=== PATIENT | female | born 1980 | race Caucasian/White ===

== ENCOUNTER → 2018-03-19 14:07 | Outpatient (CLI) | payer BC, SELFPAY ==
[2018-03-19 16:26] LABS: Thyroid Stimulating Hormone 0.77 uIU/ml (0.358-3.740)
== END ==
PROVIDERS: Family Provider Family Medicine; PCP Obstetrics & Gynecology; Visit Provider Obstetrics & Gynecology
DX: N93.8 Other specified abnormal uterine and vaginal bleeding (principal)
CPT/HCPCS: 36415; 84443

== ENCOUNTER → 2018-03-26 08:13 | Outpatient (CLI) | payer BC, SELFPAY ==
--- NOTE | 2018-03-26 08:15 | MM_ITS ---
MM Dig screening mamm BI w/CAD ORDERING PHYSICIAN : Seun Rushing MD PATIENT AGE: 37 years GENDER: Female COMPARISON: December 2014 screening baseline mammogram, with. subsequent January 2015 diagnostic bilateral mammogram images ... Also ultrasound right breast January 2015 INDICATION: ITS.REASON: screening No new complaints nor clinical findings HISTORY:. Norplant. Noncontributory family history TECHNIQUE: Standard CC and MLO images were obtained. R2 CAD reviewed. FINDINGS: Heterogeneous Moderate breast density was probably an elements central breast extending to the superior breast and upper outer quadrant bilaterally. Similar overall pattern and architecture to previous studies with no definitive suspicious new findings. No dominant mass nor suspicious calcifications. Areas of mild asymmetry seen today were seen previously RIGHT BREAST:Overall similar to previous 2015 exams. No significant new finding LEFT BREAST:No new areas of significant concern. Areas of minimal focal density seen today were evident previously, and can be followed in one year . If any palpable areas should arise interval follow-up imaging with ultrasound possibly spot views may be warranted ultrasound IMPRESSION: ......... No new areas of significant concern.. Moderately dense heterogeneous breast pattern. Slightly decreased sensitivity mammography Bilateral follow-up in one year recommended and should be encouraged/emphasized. BI-RADS Category: 2 Benign Finding(s) RECOMMENDED FOLLOW-UP: 1YR 1 YEAR FOLLOW-UP (A letter has been sent to the patient regarding results of the study.)
== END ==
PROVIDERS: Family Provider Family Medicine; PCP Obstetrics & Gynecology; Visit Provider Obstetrics & Gynecology
DX: Z12.31 Encounter for screening mammogram for malignant neoplasm of breast (principal)
CPT/HCPCS: 77067

== ENCOUNTER → 2020-03-24 15:29 | Outpatient (CLI) | payer OTHER, SELFPAY ==
[2020-03-24 15:44] LABS: Basophils % 0.3 % (0.1-2.0); Eosinophils # 0.2 K/mm3 (0.0-0.4); Eosinophils % 1.7 % (0.1-12.0); Hematocrit 41.8 % (37.0-47.0); Lymphocytes # 3.3 K/mm3 (0.7-4.5); Lymphocytes % 33.7 % (10-50); Mean Corpuscular HGB Conc 33.4 g/dL (31.8-35.4); Mean Corpuscular Hemoglobin 30.7 pg (27.0-31.2); Mean Platelet Volume 8.2 fl (7.4-10.4); Monocytes # 0.3 K/mm3 (0.1-1.0); Monocytes % 2.9 % (1.7-9.3); Neutrophils % 61.5 % (37.0-80.0); Platelet Count 269 K/mm3 (142-424); Red Blood Count 4.55 M/mm3 (4.20-5.40); Red Cell Distribution Width 13.1 % (11.5-17.5); White Blood Count 9.7 K/mm3 (4.8-10.8)
[2020-03-24 15:53] LABS: Urine Pregnancy, HCG Qual. Negative (Negative)
[2020-03-24 16:07] LABS: Chloride 103 mmol/L (98-107)
[2020-03-24 16:08] LABS: Potassium 3.8 mmoL/L (3.5-5.1); Sodium 138 mmol/L (136-145)
[2020-03-24 16:10] LABS: Alanine Aminotransferase 16 U/L (12-78); Albumin Level 4.3 g/dl (3.5-5.0); Albumin/Globulin Ratio 1.6 (1.1-1.8); Alkaline Phosphatase 65 U/L (38-126); Aspartate Amino Transferase 22 U/L (14-36); Bilirubin,Total 0.8 mg/dl (0.2-1.3); Blood Urea Nitrogen 9 mg/dl (7-17); Estimated Glomerular Filt Rate 111 ml/min (>60); GFR (African American) 134 ML/MIN (>60); Globulin 2.7 g/dL (1.3-3.2)
[2020-03-24 16:11] LABS: Anion Gap 13.8 mEq/L (5-15); Calcium 9.3 mg/dl (8.4-10.2); Carbon Dioxide 25 mmol/L (22.0-30.0); Glucose 92 mg/dl (74-100)
[2020-03-24 17:19] LABS: Coronavirus 19 IgG Antibody Negative (Negative); Coronavirus 19 IgM Antibody Negative (Negative)
[2020-03-26 05:58] LABS: Testosterone,Total 11 ng/dL (8-48)
[2020-03-26 10:26] LABS: Estradiol 23.5 pg/mL (.); FSH 1.3 mIU/mL (.); LH 0.7 mIU/mL (.)
== END ==
PROVIDERS: Visit Provider Obstetrics & Gynecology
DX: Z01.818 Encounter for other preprocedural examination (principal); N93.8 Other specified abnormal uterine and vaginal bleeding
CPT/HCPCS: 36415; 80053; 81025; 82670; 83001; 83002; 84403; 85025; 86328

== ENCOUNTER 2020-03-26 07:31 | Day surgery (SDC) | payer OTHER, SELFPAY ==
[2020-03-24 10:46] VITALS: BMI 28.8
[2020-03-26] VITALS (11 sets, daily range): BP systolic 122–143; BP diastolic 73–92; PULSE 65–75; RESP 12–18; TEMP 36.4–43; O2SAT 96–100
--- NOTE | 2020-03-26 10:17 | P.PN_ITS ---
[facility] Anesthesia Checklist - Structural Data Admitted From: Home Planned Operative Procedure/s: dx lap btl Consent for Planned Operative Procedure(s) Verified: Yes - Additional verifications Anesthesia Reactions: No Hx Blood Transfusions: No - Airway Assessment C-Spine Mobility Assessed: Yes TMJ Mobility Assessed: Yes Dentition: Good Dentition - Neurological Assessment Level of Consciousness: Awake, Alert, Appropriate - Anesthesia Plan Anesthesia Risk discussed: Yes Anesthesia Plan: Verified ASA Class: II Anesthesia Type: General [facility] History I have reviewed the patient's past medical history: Yes Medical History: Denies:: Cancer, Diabetes Mellitus Type 1, Diabetes Mellitus Type 2, Internal Pacemaker, MRSA, Seizures *Have you ever received a pneumonia vaccine?: No *Have you received a flu vaccine this season?: No Other Medical History: Reports: Other Anesthesia experience/problems:: none Laterality Cases: Right: Total Knee Replacement Other Surgeries: Yes: Other. No: Pacemaker Amputation: No Fractures: No - *Social History Last grade of school completed: Advanced degree Smoking Status: Current every day smoker Tobacco Type: cigarettes # Packs/Day (cigarettes): 1 Alcohol Intake: current Alcohol Intake Frequency:: holidays/special occasions only Substance Use Type: denies use *Occupational Status:: employed Housing: house Household Members: significant other, children *Travel in the last 8 weeks: None Family Hx:: No significant family history
--- NOTE | 2020-03-26 11:14 | HMH.ANESI ---
[facility] Anesthesia Record Part I Intake, IV Amount: 1,500 Estimated blood loss (mL): 20 Urine output (mL): 0 Blood Pressure: 122/86 SaO2: 97 Pulse Rate: 68 Respiratory Rate: 12 Temperature: 99 F Patient is:: Awake, Stable Stable to PACU at:: 11:10
--- NOTE | 2020-03-26 14:09 | HMH.OPNOTE ---
Date of procedure: 03/26/20 Pre-op Diagnosis:: 1. Heavy menstrual bleeding 2. Dysfunctional uterine bleeding 3. Undesired fertility Post-op Diagnosis:: same Procedure performed:: 1. Laparoscopic tubal ligation 2. D&C Hysteroscopy with Myosure 3. Novasure endometrial ablation Surgeon:: Carmen Orozco MD HOSPITAL INSURANCE CLERK:: Salazar Nelson Anesthesia: GETA Estimated blood loss (mL): 20 Operative findings:: grossly normal ovaries and fallopian tubes endometrial polyp Operative note:: LAPAROSCOPY: The patient was taken to the operating room and general anesthesia was administered. She was prepped/draped in lithotomy position. A uterine manipulator was placed without difficulty. Gloves were changed and attention was turned to the abdomen. A 5mm skin incision was made in the umbilical fold and the verees needle was inserted through the peritoneum and into the abdominal cavity in standard fashion. The abdomen was insufflated with CO2 gas. A 5mm non-bladed trocar was inserted directly into the abdominal cavity and appropriate placement was confirmed with the laparoscope. No intra-abdominal injuries occurred during entry into the abdominal cavity, as confirmed visually with the laparoscope. The patient was placed in trendelenburg and a 8mm skin incision was made 2cm above the pubic symphysis. A 8mm non-bladed trocar was inserted under direct visualization, without complication. The uterus was elevated out of the pelvis in order to better visualize the anatomy. A survey of the pelvis and abdomen revealed no anatomic abnormalities. The fallopian tubes were double clamped with Filshie clips without complication. The abdomen was then evacuated of gas and all trocars removed. The skin incisions were closed with 4-0 monocryl. HYSTEROSCOPY: Attention was then turned to the vagina, and the uterine manipulator was removed. The anterior lip of the cervix was grasped with a single tooth tenaculum and the cervix was dilated with Hernandez dilators of serially increasing size until the external os was able to accomodate the Myosure hysteroscope. The hysteroscope was advanced through the cervix and into the uterine cavity, which was distended with LR. Once the uterus was sufficiently distended, the cavity was evaluated and revealed and endometrial polyp on the anterior uterine wall. The Myosure was inserted into the hysteroscope and the polyp was excised successfully and without complication or significant fluid deficit. After the conclusion of this procedure, the Myosure and hysteroscope were removed from the uterus. The uterine cavity sounded to a length of 6cm. The Novasure was inserted through the cervix and expanded to fit the width of the uterus, with a width of 4.2cm. After a successful cavity assessment, the device was deployed and the endometrial ablation was completed in 86 seconds. Once the device had turned off, the Novasure was removed from the uterus and the hysteroscope was reinserted into the uterine cavity. The cavity appeared diffusely cauterized. The hysteroscope was removed from the uterus and all instruments removed from the vagina. The tenaculum site was hemostatic. All sponge/lap/needle/instrument counts correct for both abdominal and vaginal procedures. Total EBL: 20 cc. The patient was taken out of lithotomy position, extubated and taken to the PACU in stable condition. Condition: stable Disposition: PACU Complications:: none
--- NOTE | 2020-03-26 14:14 | PC.NURSE ---
1140-detailed bedside report given to Cleve,RN, pt stable upon discharge, vss
--- NOTE | 2020-03-26 19:43 | HMH.ANESII ---
[facility] Anesthesia Record Part II Discharge Time: 11:40 Destination: Surgical Day Care (OP Surgery) PACU nurse assessment reviewed?: Yes Patient Condition:: Good Anesthesia Complications:: None Swallowing reflex intact?: Yes Cyanosis?: No Blood Pressure: 135/78 Pulse Rate: 65 Temperature: 98.2 F Mental Status: Alert & Oriented Pain level:: 2 Nausea and/or vomitting:: None Intake, IV Amount: 0
== END 2020-03-26 12:10 | disposition home or self-care (01) ==
PROVIDERS: PCP Family Medicine; Visit Provider Obstetrics & Gynecology
PROC: 0U5B8ZZ Destruction of Endometrium, Via Natural or Artificial Opening Endoscopic (ICD-10-PCS; CPT 58563; principal; 2020-03-26 09:30)
DX: Z30.2 Encounter for sterilization (principal); N92.0 Excessive and frequent menstruation with regular cycle; N95.1 Menopausal and female climacteric states; Z96.641 Presence of right artificial hip joint; Z87.42 Personal history of other diseases of the female genital tract; Z72.0 Tobacco use; Z79.890 Hormone replacement therapy
CPT/HCPCS: 58563; 58671; 96374; J2405

== ENCOUNTER 2020-04-26 12:06 | Emergency (ER) | payer OTHER, SELFPAY ==
[2020-04-26 12:12] VITALS: BP 129/76; PULSE 77; RESP 17; TEMP 36.7; O2SAT 100; BMI 29.5
--- NOTE | 2020-04-26 12:29 | XR_ITS ---
PROCEDURE: XR ANKLE LT MIN 3V CLINICAL INDICATION: TWISTED ANKLE Pain COMPARISON: No exams were available for comparison FINDINGS: Soft tissue swelling laterally. No acute fracture IMPRESSION: Soft tissue swelling otherwise negative Dictated by: Daniel Falcon MD 04/26/2020 14:13 Daniel Falcon MD in OV 04/26/2020 14:13
[2020-04-26 12:58] VITALS: BP 121/82; PULSE 71; RESP 20; TEMP 36.6; O2SAT 99; BMI 29.5
--- NOTE | 2020-04-26 13:14 | HMH.EDUTC ---
[facility] [place] Disposition Clinical Impression: Ankle sprain Qualifiers: Encounter type: initial encounter Involved ligament of ankle: other ligament Laterality: left Qualified Code(s): S93.492A - Sprain of other ligament of left ankle, initial encounter Disposition: Home, Self-Care Condition on Discharge: Good Instructions: How to Use Crutches, Ankle Sprain, DI for Ankle Sprain, How To Perform RICE (Rest, Ice, Compress, Elevate) Additional Instructions: *RICE, Rest the extremity, Ice 15-20 minutes 3-4 times daily, Compress- wear the cayetano wrap as discussed as much as possible to help reduce swelling and pain, Elevate the extremity when at rest *Cayetano wrap/Walking boot is for support and help control swelling, use it except in the shower. Be sure that is not to tight but not to loose either *Elevate when resting *Ibuprofen every 6-8 hours as needed for pain an inflammation. If need something more can take Tylenol in between doses of Ibuprofen to help Immediately follow up with your family doctor for new or worsening of symptoms, or no noticeable improvement over the next 3-5 days GO straight to Dr Brown office for further treatment and evaluation Return if needed Straight to ER if any life threatening symptoms Further instructions per Dr Frazier Referrals: Rubén Ramirez MD [Primary Care Provider] - As needed Alana Frazier DPM [Staff Physician] - (Go straight for [facility] to Dr Frazier office) Time of Disposition: 13:28 Medical Decision Making - Martin Inquiry Pt receiving controlled substance: No Martin was queried for this patient: No Vital Signs: 04/26/20 12:12 04/26/20 12:58 Temperature 98.1 F 97.9 F Temperature Source Oral Oral Pulse Rate [Radial] 77 71 Respiratory Rate 17 20 Blood Pressure [Right Arm] 129/76 121/82 Blood Pressure Mean [Right Arm] 93 95 Blood Pressure Source [Right Arm] Automatic Cuff Automatic Cuff Blood Pressure Position [Right Arm] Sitting Sitting 02 Sat by Pulse Oximetry 100 99 Oxygen Delivery Method Room Air Room Air Orders (Tests/Meds): ORDERS Category Date Time Status XR ankle LT min 3V Stat Exams 04/26/20 12:29 Taken - Radiology Data #1 Image(s): Ankle Image Reviewed: Yes I reviewed the patient's radiology image w/the ED provider Preliminary Findings: No Fracture Seen [facility] [place] HPI - General Stated complaint: AO [id number] left ankle injury,home Time Seen by Provider: 04/26/20 13:14 Mode of Arrival: Ambulatory Source of Information: Patient Limitations: No Limitations Description of Symptoms (Recalled from Triage Doc. by RN): PATIENT C/O PAIN AND SWELLING TO LEFT ANKLE; STATES SHE TWISTED WHEN SHE FELL COMING OUT OF A DOOR ON SUNDAY HEENT Symptoms (Recalled from RN notes): No Resp Symptoms (Recalled from RN notes): No Skin Symptoms (Recalled from RN notes): No MS Symptoms (Recalled from RN notes): No Functional Status (Recalled from RN notes): WNL - History of Present Illness Provider Complaint: Patient states that she was coming out of her door on Sunday when she stepped out and twisted her left ankle States that ever since she have pain and swelling ever since and unable to bear weight on it due to the pain and swelling and bruising has continued to worsen - Related Data Home Medications Medication Instructions Recorded Confirmed phentermine 37.5 mg capsule 37.5 mg PO ONCE 01/28/18 04/26/20 Allergies Allergy/AdvReac Type Severity Reaction Status Date / Time No Known Allergies Allergy Verified 03/24/20 10:53 - Worker's Comp Is this a Worker's Comp case?: No [facility] History - Hepatitis A Screen Drug use history?: No High risk sexual behaviors?: No History of sexually transmitted infection?: No Currently employed?: No Childcare worker?: No Do you have indoor plumbing?: Yes Do you have electricity?: Yes Attestation statement:: This patient has been screened for Hepatitis A risk factors. I have reviewed the patient's past medical history: Yes
[2020-04-26 13:32] VITALS: BP 121/82; PULSE 71; RESP 20; TEMP 36.6; O2SAT 99
== END 2020-04-26 13:35 | disposition home or self-care (01) ==
PROVIDERS: Emergency Provider Nurse Practitioner; PCP Family Medicine
DX: S93.492A Sprain of other ligament of left ankle, initial encounter (principal); X50.1XXA Overexertion from prolonged static or awkward postures, initial encounter; Y92.018 Other place in single-family (private) house as the place of occurrence of the external cause; F17.210 Nicotine dependence, cigarettes, uncomplicated
CPT/HCPCS: 29515; 73610; 99202

== ENCOUNTER → 2021-09-06 15:09 | Outpatient (POV) | payer OTHER, SELFPAY | PROVIDERS: Visit Provider Dermatology | DX: Z00.00 Encounter for general adult medical examination without abnormal findings (principal) ==

== ENCOUNTER → 2022-07-17 15:55 | Outpatient (CLI) | payer OTHER, SELFPAY ==
[2022-07-17 19:27] LABS: Adenovirus,PCR Not Detected (NotDetected); Bordetella Pertussis Not Detected (NotDetected); Chlamydophila Pneumoniae, PCR Not Detected (NotDetected); Coronavirus 19, PCR Not Detected (NotDetected); Coronavirus 229E Not Detected (NotDetected); Coronavirus NL63 Not Detected (NotDetected); Coronavirus OC43 Not Detected (NotDetected); Coronovirus HKU1,PCR Not Detected (NotDetected); Human Metapneumovirus Not Detected (NotDetected); Influenza A, PCR Not Detected (NotDetected); Influenza AH1, 2009 Not Detected (NotDetected); Influenza AH1, PCR Not Detected (NotDetected); Influenza AH3,PCR Not Detected (NotDetected); Influenza B, PCR Not Detected (NotDetected); Mycoplasma Pneumoniae, PCR Not Detected (NotDetected); Parainfluenza 1, PCR Not Detected (NotDetected); Parainfluenza 2, PCR Not Detected (NotDetected); Parainfluenza 3, PCR Not Detected (NotDetected); Parainfluenza 4, PCR Not Detected (NotDetected); Respiratory Syncytial Virus Not Detected (NotDetected); Rhinovirus/Enterovirus Not Detected (NotDetected)
[2022-07-17 20:05] LABS: Basophils # 0.1 K/mm3 (0-0.2); Basophils % 0.9 % (0.1-2.0); Eosinophils # 0.1 K/mm3 (0.0-0.4); Eosinophils % 1.1 % (0.1-12.0); Hematocrit 43.1 % (37.0-47.0); Hemoglobin 14.3 g/dL (12.2-16.2); Lymphocytes # 2.2 K/mm3 (0.7-4.5); Mean Corpuscular HGB Conc 33.3 g/dL (31.8-35.4); Mean Corpuscular Hemoglobin 29.2 pg (27.0-31.2); Mean Corpuscular Volume 87.8 fl (81-99); Mean Platelet Volume 9.6 fl (7.4-10.4); Monocytes # 0.3 K/mm3 (0.1-1.0); Monocytes % 4.9 % (1.7-9.3); Neutrophils # 3.9 K/mm3 (1.8-7.8); Neutrophils % 59.2 % (37.0-80.0); Platelet Count 342 K/mm3 (142-424); Red Blood Count 4.91 M/mm3 (4.20-5.40); Red Cell Distribution Width 12.5 % (11.5-17.5); White Blood Count 6.6 K/mm3 (4.8-10.8)
== END ==
PROVIDERS: PCP Nurse Practitioner; Visit Provider Nurse Practitioner
DX: J18.9 Pneumonia, unspecified organism (principal)
CPT/HCPCS: 85025; 87581; 87632; 87798; C9803; U0003; U0005

== ENCOUNTER → 2022-07-19 19:53 | Outpatient (CLI) | payer OTHER, SELFPAY ==
--- NOTE | 2022-07-19 19:55 | XR_ITS ---
PROCEDURE INFORMATION: Exam: XR Chest Exam date and time: 07/19/2022 7:50 PM Age: 41 years old Clinical indication: Condition or disease; Lung condition and disease; Pneumonia TECHNIQUE: Imaging protocol: Radiologic exam of the chest. Views: 2 views. COMPARISON: CR CXR CHEST(2 VIEWS-NOT PORTABLE) 06/01/2016 5:23 PM FINDINGS: Lungs: No consolidation. Pleural spaces: No pneumothorax. Heart/Mediastinum: No cardiomegaly. Bones/joints: Scoliosis. No acute fracture. IMPRESSION: No acute findings.
== END ==
PROVIDERS: PCP Nurse Practitioner; Visit Provider Nurse Practitioner
DX: J18.9 Pneumonia, unspecified organism (principal)
CPT/HCPCS: 71046

== ENCOUNTER → 2022-09-14 21:01 | Outpatient (CLI) | payer OTHER, SELFPAY ==
[2022-09-14 19:33] LABS: Basophils # 0.1 K/mm3 (0-0.2); Eosinophils # 0.1 K/mm3 (0.0-0.4); Eosinophils % 1.9 % (0.1-12.0); Hemoglobin 15.1 g/dL (12.2-16.2); Lymphocytes # 2.2 K/mm3 (0.7-4.5); Mean Corpuscular HGB Conc 32.1 g/dL (31.8-35.4); Mean Corpuscular Hemoglobin 29.4 pg (27.0-31.2); Mean Corpuscular Volume 91.6 fl (81-99); Mean Platelet Volume 9.8 fl (7.4-10.4); Monocytes # 0.4 K/mm3 (0.1-1.0); Monocytes % 5.8 % (1.7-9.3); Neutrophils # 3.5 K/mm3 (1.8-7.8); Neutrophils % 56.2 % (37.0-80.0); Platelet Count 307 K/mm3 (142-424); Red Blood Count 5.13 M/mm3 (4.20-5.40); Red Cell Distribution Width 13.9 % (11.5-17.5); White Blood Count 6.1 K/mm3 (4.8-10.8)
[2022-09-14 20:04] LABS: Alanine Aminotransferase 18 U/L (12-78); Albumin Level 4.5 g/dl (3.5-5.0); Albumin/Globulin Ratio 1.8 (1.1-1.8); Alkaline Phosphatase 76 U/L (38-126); Anion Gap 16.2 mEq/L (5-15); Aspartate Amino Transferase 25 U/L (14-36); Bilirubin,Total 1.5 mg/dl (0.2-1.3); Blood Urea Nitrogen 12 mg/dl (7-17); Calcium 9.1 mg/dl (8.4-10.2); Carbon Dioxide 23 mmol/L (22.0-30.0); Chloride 104 mmol/L (98-107); Chol/HDL Ratio 5.5 (1-3.5); Cholesterol 214 mg/dl (140-200); Estimated Glomerular Filt Rate 110 ml/min (>60); GFR (African American) 133 ML/MIN (>60); Globulin 2.5 g/dL (1.3-3.2); Glucose 93 mg/dl (74-100); HDL Cholesterol 39 mg/dl (40-60); Potassium 4.2 mmoL/L (3.5-5.1); Sodium 139 mmol/L (136-145); Triglycerides 186 mg/dl (30-150); VLDL Cholesterol 37 mg/dL (0-40)
[2022-09-14 20:15] LABS: Direct LDL Cholesterol 148.46 mg/dL (100-129)
[2022-09-14 20:20] LABS: Free T4 (Free Thyroxine) 1.31 ng/dl (0.78-2.19)
[2022-09-14 20:29] LABS: Hemoglobin A1C 4.8 % (4.0-6.0); Thyroid Stimulating Hormone 0.75 uIU/mL (0.465-4.68)
[2022-09-14 20:47] LABS: Vitamin B12 567 pg/mL (239-931)
[2022-09-18 18:09] LABS: Anti-Centromere B Antibodies <0.2 AI (0.0-0.9); Anti-DNA (DS) Ab Qn 12 IU/mL (0-9); Anti-Jo-1 <0.2 AI (0.0-0.9); Anti-Smith Antibody <0.2 AI (0.0-0.9); Antichromatin Antibodies <0.2 AI (0.0-0.9); Antiscleroderma-70 Antibodies <0.2 AI (0.0-0.9); RNP Antibodies 0.3 AI (0.0-0.9); Sjogren's Anti-SS-A <0.2 AI (0.0-0.9); Sjogren's Anti-SS-B <0.2 AI (0.0-0.9)
== END ==
PROVIDERS: PCP Nurse Practitioner; Visit Provider Nurse Practitioner
DX: Z00.00 Encounter for general adult medical examination without abnormal findings (principal); H53.8 Other visual disturbances; Z13.0 Encounter for screening for diseases of the blood and blood-forming organs and certain disorders involving the immune mechanism; Z13.1 Encounter for screening for diabetes mellitus; Z13.21 Encounter for screening for nutritional disorder; Z13.220 Encounter for screening for lipoid disorders
CPT/HCPCS: 80053; 80061; 82306; 82607; 83036; 84439; 84443; 85025; 86225; 86235

== ENCOUNTER → 2023-05-15 12:27 | Outpatient (CLI) | payer OTHER, SELFPAY ==
[2023-05-15 12:54] LABS: Basophils % 0.5 % (0.1-2.0); Eosinophils # 0.1 K/mm3 (0.0-0.4); Eosinophils % 1.4 % (0.1-12.0); Hematocrit 42.7 % (37.0-47.0); Hemoglobin 14.8 g/dL (12.2-16.2); Lymphocytes # 2.2 K/mm3 (0.7-4.5); Lymphocytes % 30.7 % (10-50); Mean Corpuscular HGB Conc 34.7 g/dL (31.8-35.4); Mean Corpuscular Hemoglobin 31.7 pg (27.0-31.2); Mean Corpuscular Volume 91.3 fl (81-99); Mean Platelet Volume 8.6 fl (7.4-10.4); Monocytes # 0.2 K/mm3 (0.1-1.0); Monocytes % 3.2 % (1.7-9.3); Neutrophils # 4.7 K/mm3 (1.8-7.8); Neutrophils % 64.1 % (37.0-80.0); Platelet Count 212 K/mm3 (142-424); Red Blood Count 4.67 M/mm3 (4.20-5.40); Red Cell Distribution Width 12.8 % (11.5-17.5); White Blood Count 7.3 K/mm3 (4.8-10.8)
[2023-05-15 13:08] LABS: Activated Partial Thrombo Time 28.5 seconds (22.8-30.6); INR 0.94 (0.9-1.1); Prothrombin Time 10.2 seconds (10.1-12.5)
[2023-05-15 13:39] LABS: Anion Gap 13.9 mEq/L (5-15); Blood Urea Nitrogen 13 mg/dl (7-17); Calcium 9.3 mg/dl (8.4-10.2); Carbon Dioxide 26 mmol/L (22.0-30.0); Chloride 104 mmol/L (98-107); Estimated Glomerular Filt Rate 135 ml/min (>60); GFR (African American) 163 ML/MIN (>60); Glucose 95 mg/dl (74-100); Potassium 3.9 mmoL/L (3.5-5.1); Sodium 140 mmol/L (136-145)
== END ==
PROVIDERS: PCP Family Medicine; Visit Provider Nurse Practitioner
DX: Z01.818 Encounter for other preprocedural examination (principal); M16.12 Unilateral primary osteoarthritis, left hip
CPT/HCPCS: 36415; 80048; 83036; 85025; 85610; 85730

== ENCOUNTER 2023-06-18 16:30 | Outpatient (RCR) | payer OTHER, SELFPAY | END 2023-06-18 17:45 | disposition home or self-care (01) | LOC: PT 16:30 | PROVIDERS: PCP Family Medicine; Visit Provider Orthopaedic Surgery Adult Reconstructive Orthopaedic Surgery | DX: M25.552 Pain in left hip (principal); Z96.642 Presence of left artificial hip joint | CPT/HCPCS: 97110; 97163; 97530 ==

== ENCOUNTER 2025-02-03 12:30 | Outpatient (CLI) | payer OTHER, SELFPAY ==
--- OUTSIDE RECORDS SUMMARY | 2025-02-02 06:05 | XMS_ITS | Continuity of Care Document ---
Author Organization [facility] Address [address] [place] [address] Phone Care Team Providers Care Qa Tech Name Role Phone Brad Lyon MD Unavailable Unavailable Allergies, Adverse Reactions, Alerts Substance Reaction Status Criticality No Known Allergies Active No Inform ation Medications Medication Instructions Dosage Effective Dates (start - stop) Status Comments cyclobenzaprine 10 mg tablet take 1 tablet by oral route every night at needed - Active Medrol (Gilles) 4 mg tablets in a dose pack Per package instructions - Active promethazine 12.5 mg tablet take 1 tablet by oral route every 6 hours as needed - Active oxycodone 5 mg tablet take 1 - 2 tablet by oral route every 4 - 6 hours as needed for pain 5 MG - Active status post total joint replacement meloxicam 15 mg tablet take 1 tablet by oral route every day 15 MG - Active aspirin 81 mg tablet,delayed release take 1 tablet by oral route 2 times every day 81 MG - Active tramadol 50 mg tablet take 1 tablet by oral route every 6 hours as needed 50 MG - Active status post total hip 06/20/17 Voltaren-XR 100 mg tablet,extended release take 1 tablet by oral route every day - Active aspirin 325 mg tablet take 1 tablet by oral route every day 325 MG - Active status post total hip 06/20/17 promethazine 12.5 mg tablet take 1 tablet by oral route every 6 hours as needed - Active Celebrex 200 mg capsule take 1 capsule by oral route every day as needed 200 MG - Active [place] 5 mg-325 mg tablet take 1-2 tablets by oral route every 4-6 hours as needed for pain - Active status post total hip 06/20/17 IBUPROFEN (unknown strength) take 2 tablet by oral route every 4 - 6 hours as needed with food Not Available - Active Procedures Procedure Date Office/outpatient visit,new, mod 2024 X-ray exam lwr spine, min 4 views THERAPEUTIC PROPHYLACTIC/DX INJECTION BERNSTEIN BQ/IM Inj Methylpred Acetate 1 MG X-RAY EXAM HIP UNI 2-3 VIEWS Postop followup visit PT EVAL LOW COMPLEX 20 MIN Gait training therapy Physical Tx exercise Total hip arthroplasty &prosthesis PA Total Hip Arthoplasty & Prosthesis Oc Office/outpatient visit,est, mod 2022 Office/outpatient visit,est, mod 2022 MRI Lwr Ext Joint w Contrast Injection for hip x-ray Ultrasonic guide needle plcmnt S/I Office/outpatient visit,est, mod 2022 DRAIN/INJ JOINT/BURSA W/US X-RAY EXAM HIP UNI 2-3 VIEWS Methylprednisolone 80 MG inj Office/outpatient visit,est, mod 2021 Drain/inject major jointor bursa 2021 X-ray exam of neck spine, 4+ views X-ray exam of shoulder, complete 2021 Methylprednisolone 80 MG inj Postop followup visit X-ray exam tib/fib, 2 views X-ray exam of ankle, complete Office/outpatient visit,est, mod 2021 X-ray exam of knee, 4+ views X-ray exam tib/fib, 2 views X-ray exam of ankle, complete 2 Treat fibula fracture Office/outpatient visit,est, mod 2019 X-ray exam of ankle, 2 views X-ray exam of foot, complete Office/outpatient visit,est, mod 2017 MRI Lumbar Spine wo Contrast Office/outpatient visit,est, mod 2017 X-ray exam lower spine 2-3 views 2017 Office/outpatient visit,est, mod 2017 X-RAY EXAM HIP UNI 2-3 VIEWS Postop followup visit X-RAY EXAM HIP UNI 2-3 VIEWS Total hip arthroplasty &prosthesis PA Total Hip Arthoplasty & Prosthesis No Office/outpatient visit,est, mod 2016 X-RAY EXAM HIP UNI 2-3 VIEWS Office/outpatient visit,est, mod 2016 MRI Lwr Ext Joint wo Contrast 7 Office/outpatient visit,est, mod 2016 Njx interlaminar lmbr/sac Methylprednisolone 40 MG inj Njx interlaminar lmbr/sac Methylprednisolone 40 MG inj Office consultation, moderate 7 Njx interlaminar lmbr/sac Methylprednisolone 40 MG inj Office/outpatient visit,est, mod 2016 MRI Lumbar Spine wo Contrast Office consultation, moderate 7 X-ray exam lwr spine, min 4 views Advance Directives Directive Yes / No Effective Date File Name No Information Encounters Encounter Description Practice Location Reason(s) For Visit Diagnoses Date Provider Providers Copied on Encounter Office/outpa tient visit,new, mod [facility], [facility][note 3] E [facility], [place], [address], [place] tel:[phone] [facility] Intervertebra l disc disorders with radiculopathy , lumbar regionOther intervertebra l disc degeneration, lumbar region with discogenic back pain and lower extremity painOther specified dorsopathies, lumbar regionOther idiopathic scoliosis, lumbar regionStrain of muscle, fascia and tendon of lower back, initial encounter 5 Sonali Salinas. [address] [place], [address], [place]. tel:[phone] Referring Provider: Brad Lyon, [address] [place], [address]. tel:[phone] [facility], [facility][note 3] [place], [address], [place] tel:[phone] [facility] Presence of left artificial hip joint 3 Yuly Colby. [address], [place], [place], [id number], [place]. tel:[phone] Referring Provider: Mansoor Butts, [address], [place], [address] . tel:[phone] [facility], [facility][note 3] [place], [address], [place] tel:[phone] [facility] Unilateral primary osteoarthriti s, left hip 3 Francisco J Jurado. [address] [place], [address], [place]. Referring Provider: Mansoor Butts, [address], [place], [address] . tel:[phone] [facility], [facility][note 3] [place], [address], [place] tel:[phone] [facility] No Information 3 Yuly Colby. [address], [place], [place], [id number], [place]. tel:[phone] Referring Provider: Lasha Emery, [address], [place], [address] . tel:[phone] [facility], [address], [place], [address], [place] tel:[phone] [facility] No Information 3 Ryan Marilin. [address], [place], [address], [place]. tel:[phone] Referring Provider: Lasha Emery, [address], [place], [address] . tel:[phone] [facility], [address], [place], [address], [place] tel:[phone] [facility] Presence of left artificial hip joint 3 Yuly Colby. [address], [place], [place], [id number], [place]. tel:[phone] Referring Provider: Lasha Emery, [address], [place], [address] . tel:[phone] Office/outpa tient visit,est, mod [facility], [address], [place], [address], [place] tel:[phone] [facility] Idiopathic aseptic necrosis of left femur 3 Yuly Colby. [address], [place], [place], [id number], [place]. tel:[phone] Referring Provider: Mansoor Butts, [address], [place], [address] . tel:[phone] Office/outpa tient visit,est, mod [facility], [address], [place], [address], [place] tel:[phone] [facility] Unilateral primary osteoarthriti s, left hip 3 Juan José Max. [address], [place], [place], [id number], [place]. tel:[phone] Referring Provider: Mansoor Butts, [address], [facility] [place], [address] . tel:[phone] [facility], [address], [place], [address], [place] tel:[phone] [facility] No Information 3 Juan José Mansoor. [address], [place], [place], [id number], [place]. tel:[phone] Referring Provider: Mansoor Butts, [address], [place], [address] . tel:[phone] [facility], [address], [place], [address], [place] tel:[phone] [facility] Pain in left hip 3 Miguel Tadeo. [address], [place], [place], [facility], [place]. tel:[phone] Referring Provider: Mansoor Butts, [address], [place], [address] . tel:[phone] Office/outpa tient visit,est, mod [facility], [address], [place], [address], [place] tel:[phone] [facility] Other specified joint disorders, left hip 3 Juan José Mansoor. [address], [place], [place], [id number], [place]. tel:[phone] Referring Provider: Lasha Emery, [address] [place], [address] . tel:[phone] Office/outpa tient visit,est, mod [facility], [address], [place], [address], [place] tel:[phone] [facility] Impingement syndrome of right shoulderRadic ulopathy, cervical region 2 Juan José Mansoor. [address], [place], [place], [id number], [place]. tel:[phone] Referring Provider: Mansoor Butts, [address], [place], [address] . tel:[phone] [facility], [facility][note 3] [place], [address], [place] tel:[phone] [facility] Sltr-yuriy Type I physeal fx upper end of r fibula, init 2 Yuly Colby. [address], [place], [place], [id number], [place]. tel:[phone] Referring Provider: Lasha Emery, [address], [place], [address] . tel:[phone] Office/outpa tient visit,est, mod [facility], [facility][note 3] [place], [facility], tel:[phone] [facility] Sltr-yuriy Type I physeal fx upper end of r fibula, init 2 Yuly Colby. [address], [place], [place], [id number], [place]. tel:[phone] Referring Provider: Lasha Emery, [address], [place], [address] . tel:[phone] Office/outpa tient visit,est, mod [facility], [facility][note 3] [place], [address], [place] tel:[phone] [facility] Pain in left ankle and joints of left footSprain of other ligament of left ankle, initial encounter 0 Oren Figueora. [address], [place], [id number], [place]. tel:[phone] Office/outpa tient visit,est, mod [facility], [facility][note 3] [place], [address], [place] tel:[phone] [facility] No Information 8 Sonali Salinas. [address] [place] [address], [address], . tel:[phone] [facility], [facility][note 3] [place], [facility], [place] tel:[phone] [facility] No Information 8 Sonali Salinas. [address] [place] [address], [facility], . tel:[phone] Referring Provider: Brad Lyon, [address] [place] [address]. tel:[phone] Office/outpa tient visit,est, mod [facility], [facility][note 3] [place], [facility], tel:[phone] [facility] No Information 8 Sonali Salinas. [address] [place] [address], [facility], . tel:[phone] Referring Provider: Brad Lyon, [address] [place] [address], [facility]. tel:[phone] Office/outpa tient visit,est, mod [facility], [facility][note 3] [place], [facility], [place] tel:[phone] [facility] No Information 8 Yuly Colby. [address], [id number], [place]. tel:[phone] [facility], [facility][note 3] [place], [address], [place] tel:[phone] [facility] No Information 0 7 Yuly Colby. [address], [place], [id number], [place]. tel:[phone] [facility], [facility][note 3] [place], [address], [place] tel:[phone] [facility] No Information 7 Yuly Mattaew. [address], [place], [place], [id number], [place]. tel:[phone] [facility], [address], [place], [address], [place] tel:[phone] [facility] No Information 7 Yulygeena Colby. [address], [place], [place], [id number], [place]. tel:[phone] [facility], [address] [place], [address], [place] tel:[phone] [facility] No Information 7 Yuly Colby. [address], [place], [place], [id number], [place]. tel:[phone] [facility], [address] [place], [address], [place] tel:[phone] [facility] No Information 7 Ryan Gaston. [address] [place], [address], [place]. tel:[phone] [facility], [address] [place], [address], [place] tel:[phone] [facility] No Information 7 Yuly Colby. [address], [place], [place], [id number], [place]. tel:[phone] Office/outpa tient visit,est, mod [facility], [address] [place], [address], [place] tel:[phone] [facility] No Information 7 Yuly Colby. [address], [place], [place], [id number], [place]. tel:[phone] Referring Provider: Brad Lyon, [address] [place], [place], [facility]. tel:[phone] Office/outpa tient visit,est, mod [facility], [facility][note 3] [address] [place], [place], [facility], [place] tel:[phone] [facility] No Information 0 7 Sonali Brad. [address] [place], [place], [facility], . tel:[phone] [facility], [facility][note 3] [place], [facility], [place] tel:[phone] [facility] No Information 7 Grayson Tadeo. [facility][note 3] [place], [facility], [place]. tel:[phone] Referring Provider: Carlyle Pearce, [address] [place] [address], [facility]. tel:[phone] Office/outpa tient visit,est, mod [facility] [address], [facility], [place] tel:[phone] [facility] No Information 7 Grayson Tadeo. [facility][note 3] [address] [place], [facility], [place]. tel:[phone] [facility] [place] [address] [place], [facility], [place] tel:[phone] [facility] No Information 7 Pavan Betancourt. [address] [place], [address], [place]. tel:[phone] [facility] [place] [address] [place], [facility], [place] tel:[phone] [facility] No Information 7 Pavan Betancourt. [address] [place], [address], [place]. tel:[phone] Office consultation , moderate [facility] [place] [address] [place], [facility], [place] tel:[phone] [facility] No Information 7 Pavan Betancourt. [address] [place], [address], . tel:[phone] Referring Provider: Carlyle Pearce, [address] [place], [place], [facility]. tel:[phone] Office/outpa tient visit,est, mod [facility] [place] [address] [place], [facility], tel:[phone] [facility] No Information 7 Grayson Tadeo. [facility][note 3] [address] [place], [facility], . tel:[phone] [facility], [facility][note 3] [place], [facility], tel:[phone] [facility] No Information 7 Grayson Tadeo. [address] [place], [place], [facility], . tel:[phone] Referring Provider: Carlyle Pearce, [address] [place] [address], [facility]. tel:[phone] Office consultation , moderate [facility], [facility][note 3] [place], [facility], tel:[phone] [facility] No Information 7 Grayson Tadeo. [address] [place], [place], [facility], . tel:[phone] Referring Provider: Seth Xiong, [facility] [address], [address] . tel:[phone] Family History Family Member Type Diagnosis Age At Onset No Information Payers Payer name Insurance type Covered libertarian ID Valentin soriano(garret Perez Administrative - [id number] Social History Type Description Quantity Date Captured Comments Sex Female Smoking Status No Information Chief Complaint And Reason For Visit No Information Reason For Referral Reason For Referral No Information Plan Of Treatment Date Type Action Status Appointment Sagrario Perea BOOKED Future Order: Radiology Order MR I Lumbar Spine WO Contrast ([id number]), Collected on: , Sent on: Sent Future Order: Radiology Order MR I Hip WO Contrast ([id number]), Collected on: , Sent on: Sent Future Order: Radiology Order MR I Lumbar Spine WO Contrast ([id number]), Collected on: , Sent on: Sent History Of Present Illness Encounter Date Complaint History Of Prese nt Illness back pain hip hip shoulder knee Functional Status Date Functional Assessmen t No Information Instructions Date Instruction Additional Infor mation No Information Assessments Type Assessment Date No Information Patient Care Teams Name Effective Dates (start - stop) Status Members No Information
[2025-02-03 20:08] LABS: Hematocrit 45.7 % (37.0-47.0); Hemoglobin 14.1 g/dL (12.2-16.2); Immature Granulocytes % 0.3 %; Mean Corpuscular HGB Conc 30.9 g/dL (31.8-35.4); Mean Corpuscular Hemoglobin 28.8 pg (27.0-31.2); Mean Corpuscular Volume 93.3 fl (81-99); Nucleated Red Blood Cells % 0 %; Platelet Count 236 K/mm3 (142-424); Red Blood Count 4.90 M/mm3 (4.20-5.40); Red Cell Distribution Width-SD 43.7 fL; White Blood Count 8.0 K/mm3 (4.8-10.8)
[2025-02-03 20:26] LABS: Alanine Aminotransferase 14 U/L (12-78); Albumin Level 4.8 g/dl (3.5-5.0); Albumin/Globulin Ratio 1.8 (1.1-1.8); Alkaline Phosphatase 68 U/L (38-126); Anion Gap 18.5 mEq/L (5-15); Aspartate Amino Transferase 19 U/L (14-36); Bilirubin,Total 1.0 mg/dl (0.2-1.3); Blood Urea Nitrogen 13 mg/dl (7-17); Calcium 9.9 mg/dl (8.4-10.2); Carbon Dioxide 24 mmol/L (22.0-30.0); Chloride 102 mmol/L (98-107); Cholesterol 254 mg/dl (140-200); Creatinine,Serum 0.60 mg/dl (0.52-1.04); Estimated Glomerular Filt Rate 108 ml/min (>60); GFR (African American) 131 ML/MIN (>60); Globulin 2.6 g/dL (1.3-3.2); Glucose 100 mg/dl (74-100); HDL Cholesterol 50 mg/dl (40-60); Potassium 4.5 mmoL/L (3.5-5.1); Sodium 140 mmol/L (136-145); Total Protein,Serum 7.4 g/dl (6.3-8.2); Triglycerides 106 mg/dl (30-150)
[2025-02-03 20:44] LABS: 25-OH Vitamin D, Total 27.7 ng/mL (30-100)
[2025-02-03 20:57] LABS: Thyroid Stimulating Hormone 0.24 uIU/mL (0.465-4.68)
[2025-02-03 21:15] LABS: Vitamin B12 939 pg/mL (239-931)
[2025-02-03 22:21] LABS: Hepatitis C Ab Qual. W/ RFX NEGATIVE (Negative)
[2025-02-03 23:04] LABS: Hemoglobin A1C 6.0 % (4.0-6.0)
--- OUTSIDE RECORDS SUMMARY | 2025-02-04 10:18 | XMS_ITS | Referral Summary ---
Author Organization [facility] Address [address] [place] [address] Care Team Providers Care Roll Picker Name Role Phone James FOX, , Bird Pichardo Primary Care Provider + Allergies No known active allergies Medications varenicline (CHANTIX) 1 MG TABS Take 1 mg by mouth 2 (two) times daily. Active acetaminophen (TYLENOL) 325 MG TABS Take 650 mg by mouth every 6 (six) hours as needed for Mild Pain (1-3). Active Etonogestrel (NEXPLANON SC) Use. Left upper arm Active Phentermine HCl (ADIPEX-P PO) Take by mouth. A ctive hydrocodone-dickson taminophen (NORCO) 5-325 MG TABS Take 1-2 tablets by mouth every 4 (four) hours as needed for Moderate Pain (4-6) (When tolerating oral intake.). 0 7 Active aspirin 325 MG TBEC Take 1 tablet by mouth daily. 60 tablet 7 Active celecoxib (CELEBREX) 200 MG CAPS Take 1 capsule by mouth daily. 7 Active Active Problems Problem Noted Date Diagnosed Date Postoperative anemia 06/20/2017 At risk for deep venous thrombosis 06/20/2017 Social History Tobacco Use Types Packs/Day Years Used Date Smoking Tobacco: Former Cigarettes Q uit: 06/04/2017 Smokeless Tobacco: Never Comments:1 pack per week Alcohol Use Standard Drinks/Week Comments Yes 0 (1 standard drink = 0.6 oz pur e alcohol) socially Comments Unknown Sex and Gender Information Value Date Recorded Sex Assigned at Not on file Legal Sex Female 1:33 PM EDT Gender Identity Female 06/11/2017 10:34 AM EST Sexual Orientation Not on file Last Filed Vital Signs Vital Sign Reading Time Taken Comments Blood Pressure 129/80 06/21/2017 11:15 AM EST Pulse 92 06/21/2017 11:15 AM EST Temperature 36.8 C (98.3 F) 06/21/2017 11:15 AM EST Respiratory Rate 16 06/21/2017 11:15 AM EST Oxygen Saturation 99% 06/21/2017 11:15 AM EST Inhaled Oxygen Concentration - - Weight 98.9 kg (218 lb) 06/20/2017 7:45 AM EST Height 188 cm (6' 2 ) 06/20/2017 7:45 AM EST Body Mass Index 27.99 06/20/2017 7:45 AM EST Functional Status * Are you deaf or do you have serious difficulty hearing? Answer Date of Assessment Author No 06/11/2017 10:36 AM Dahlia Pablo RN, BSN * Are you blind or do you have serious difficulty seeing, even when wearing glasses? Answer Date of Assessment Author No 06/11/2017 10:36 AM Dahlia Pablo RN, BSN * Do you have serious difficulty walking or climbing stairs? (5 years old or older) Answer Date of Assessment Author No 06/11/2017 10:36 AM Dahlia Pablo RN, BSN * Do you have difficulty dressing or bathing? (5 years old or older) Answer Date of Assessment Author No 06/11/2017 10:36 AM Dahlia Pablo RN, BSN * Because of a physical, mental, or emotional condition, do you have difficulty doing errands alone such as visiting a doctor???s office or shopping? (15 years old or older) Answer Date of Assessment Author No 06/11/2017 10:36 AM Dahlia Pablo RN, BSN Mental Status * Because of a physical, mental, or emotional condition, do you have serious difficulty concentrating, remembering, or making decisions? (5 years old or older) Answer Entry Date Author No 06/11/2017 10:36 AM Dahlia Pablo RN, BSN Plan of Treatment Not on file Medical Devices Implanted Type Area Land Surveyor Device Identifier Shelf Expiration Date Model / Serial / Lot Implant,Total Hip Non-Cemented - [id number] Implanted:Qty: 1 on 06/20/2017 by Lasha Emery MD at [facility] Right: Hip [employer] Acetabular Shell Implanted:Qty: 1 on 06/20/2017 by Lasha Emery MD at [facility] Right: Hip [employer] 01/26/2027 2 / / [id number] Ceramic Femoral Head Implanted:Qty: 1 on 06/20/2017 by Lasha Emery MD at [facility] Right: Hip [employer] 10/27/2021 0 / / [id number] Acetabular Liner Implanted:Qty: 1 on 06/20/2017 by aLsha Emery MD at [facility] Right: Hip [employer] 04/28/2022 2 / / [id number] Corail Femoral Stem Implanted:Qty: 1 on 06/20/2017 by Lasha Emery MD at [facility] Right: Hip [employer] 11/26/2021 [id number] / / [id number] Screws,All - [id number] Implanted:Qty: 1 on 06/20/2017 by Lasha Emery MD at [facility] Right: Hip [employer] 0 / / Description:CANCELLOUS BONE SCREW (6.5 x 35mm) Insurance [facility] ALL OTHERS NOT MEDICARE Care Teams Roll Picker Relationship Specialty Start Date End Date Bird Ramirez MD, MD [address] [facility] [address] [place] [address] PCP - General 06/05/17
--- OUTSIDE RECORDS SUMMARY | 2025-02-04 10:18 | XMS_ITS | Clinical Summary ---
Author Organization [facility] Address [address] [place] [address] Phone Care Team Providers Care Hanger Name Role Phone Unavailable Primary Care Provider Unavailabl e Allergies No known active allergies Medications phentermine HCl (ADIPEX-P ORAL) Take by mouth. Active Cholecalciferol , Vitamin D3, 1,250 mcg (50,000 unit) Oral Capsule TAKE 1 CAPSULE ORALLY ONCE WEEKLY 11/21/2022 Active Active Problems No known active problems Surgical History Surgery Date Site/Laterality Comments JOINT REPLACEMENT TUBAL LIGATION EYE SURGERY Social History Tobacco Use Types Packs/Day Years Used Date Smoking Tobacco: Some Days Alcohol Use Standard Drinks/Week Comments Yes 0 (1 standard drink = 0.6 oz pur e alcohol) occasionally Comments No Sex and Gender Information Value Date Recorded Sex Assigned at Not on file Legal Sex Female 3:27 PM EDT Gender Identity Not on file Sexual Orientation Not on file Obstetrics History Last Filed Vital Signs Vital Sign Reading Time Taken Comments Blood Pressure 132/84 12/01/2022 4:23 PM EDT Pulse 91 12/01/2022 4:23 PM EDT Temperature 36.6 C (97.8 F) 12/01/2022 4:23 PM EDT Respiratory Rate - - Oxygen Saturation - - Inhaled Oxygen Concentration - - Weight 93.7 kg (206 lb 9.6 oz) 12/01/2022 4:23 P M EDT Height 188 cm (6' 2 ) 12/01/2022 4:23 PM EDT Body Mass Index 26.53 12/01/2022 4:23 PM EDT Plan of Treatment Health Maintenance Due Date Last Done Comments Annual Wellness Exam 12/24/1982 DTaP/TDaP/Td (1 - Tdap) 12/24/1998 Hepatitis B Vaccine (1 of 3 - 19+ 3-dose series) 12/24/1998 Pneumococcal Vaccine 0-49 (1 of 2 - PCV) 12/24/1998 Cervical Cancer Screening 12/24/2000 Pap Smear 12/24/2000 HPV/Pap Cotest 12/24/2009 Breast Cancer Screening 2019 COVID-19 Vaccine (1 - 2023-2 5 season) 2024 Cologuard 12/24/2024 Colon Cancer Screening 12/24/2024 Colonoscopy 12/24/2024 FIT 12/24/2024 Sigmoidoscopy 12/24/2024 Virtual Colonography 12/24/2024 Influenza Vaccine (#1) 2025 Meningococcal B Vaccine Aged Out No l onger eligible based on patient's age to complete this topic Insurance
--- OUTSIDE RECORDS SUMMARY | 2025-02-04 10:18 | XMS_ITS | Clinical Summary ---
Author Organization [facility] Address [address] [place] [phone] Care Team Providers Care Sanitation Worker Cleaning Equipment Name Role Phone James FOX, , Bird [...] Mass Index 27.99 06/20/2017 7:45 AM EST Plan of Treatment Health Maintenance Due Date Last Done Comments DTap,Tdap,and Td (1 - Tdap) 12/24/1990 Pap Screening 12/24/2000 Mammogram Screening 2019 Colonoscopy 12/24/2024 Influenza Vaccine (Season Ended) 2025 RSV Vaccine (60+ or ) (1 - 1-dose 75+ series) 12/24/2054 HPV Aged Out No longer eligi ble based on patient's age to complete this topic Meningococcal conjugate annia nt 4 (MCV4) Aged Out No longer eligible b ased on patient's age to complete this topic Pneumococcal 0-49 Aged Out No longer eligible based on patient's age to complete this topic RSV Immunization (<20 months) Aged Out No longer eligible based on patient's age to complete this topic Medical Devices Implanted Type Area Church Administrator Device Identifier Shelf Expiration Date Model / Serial / Lot Implant,Total Hip Non-Cemented - [id number] Implanted:Qty: 1 on 06/20/2017 by Lasha Emery MD at [facility] Right: Hip DEPU[employer] Acetabular Shell Implanted:Qty: 1 on 06/20/2017 by Lasha Emery MD at [facility] Right: Hip [employer] 01/26/2027 2 / / [id number] Ceramic Femoral Head Implanted:Qty: 1 on 06/20/2017 by Lasha Emery MD at [facility] Right: Hip [employer] 10/27/2021 0 / / [id number] Acetabular Liner Implanted:Qty: 1 on 06/20/2017 by Lasha Emery MD at [facility] Right: Hip [employer] 04/28/2022 2 / / [id number] Corail Femoral Stem Implanted:Qty: 1 on 06/20/2017 by Lasha Emery MD at [facility] Right: Hip [employer] 11/26/2021 [id number] / / [id number] Screws,All - [id number] Implanted:Qty: 1 on 06/20/2017 by Lasha Emery MD at [facility] Right: Hip DE[employer] 0 / / Description:CANCELLOUS BONE SCREW (6.5 x 35mm) Insurance [facility] ALL OTHERS NOT MEDICARE Advance Directives * Full Code (Latest Code Status on File) Date Activated Date Inactivated Comments 06/20/2017 12:11 PM 06/21/2017 3:02 PM * Full Code Date Activated Date Inactivated Comments 06/20/2017 7:26 AM 06/20/2017 12:11 PM Care Teams Sanitation Worker Cleaning Equipment Relationship Specialty Start Date End Date Bird Ramirez MD, [address] [place] [facility] [address] [place] [address] PCP - General 06/05/17
--- OUTSIDE RECORDS SUMMARY | 2025-02-04 10:18 | XMS_ITS | Encounter Summary ---
Author Organization [facility] Address [facility] [place] [address] Phone Care Team Providers Care Table Keeper Name Role Phone James FOX MD, Bird Pichardo Primary Care Provider + Encounter Details Date Type Department Care Team ([facility] st Contact Info) Description 06/26/2017 Discharge Call Center Patient Call Center [address] [place] [phone] Social History Tobacco Use Types Packs/Day Years [...] AM EST Sexual Orientation Not on file documented as of this encounter Functional Status * Are you deaf or do you have serious difficulty hearing? Answer Date of Assessment Author No 06/11/2017 10:36 AM Dahlia Pablo RN, BSN * Are you blind or do you have serious difficulty seeing, even when wearing glasses? Answer Date of Assessment Author No 06/11/2017 10:36 AM Dahlia Pablo, SACHA, BSN * Do you have serious difficulty [...] Assessment Author No 06/11/2017 10:36 AM Dahlia Pablo, SACHA, BSN documented as of this encounter Mental Status * Because of a physical, mental, or emotional condition, do you have serious difficulty concentrating, remembering, or making decisions? (5 years old or older) Answer Entry Date Author No 06/11/2017 10:36 AM Dahlia Pablo, SACHA, BSN documented in this encounter Plan of Treatment Not on file documented as of this encounter Visit Diagnoses Not on filedocumented in this encounter Care Teams Table Keeper Relationship Specialty Start Date End Date Bird Ramirez MD, [address] [place] [address] [address] [address] PCP - General 06/05/17 documented as of this encounter
[2025-02-05 08:13] LABS: Hepatitis B Surface Antigen Negative (Negative)
[2025-02-05 11:20] LABS: FSH 4.5 mIU/mL (.); LH 10.8 mIU/mL (.)
== END 2025-02-03 23:59 | disposition home or self-care (01) ==
LOC: LAB.DROPOF 02-04 10:10
PROVIDERS: PCP Nurse Practitioner; Visit Provider Nurse Practitioner
DX: E55.9 Vitamin D deficiency, unspecified (principal); E78.5 Hyperlipidemia, unspecified; N95.1 Menopausal and female climacteric states; Z13.1 Encounter for screening for diabetes mellitus; Z11.59 Encounter for screening for other viral diseases
CPT/HCPCS: 80053; 80061; 80074; 82306; 82607; 82672; 83001; 83002; 83036; 84443; 85025; 86225; 86235; 87340; 87389

== ENCOUNTER 2025-02-05 14:46 | Outpatient (CLI) | payer OTHER, SELFPAY ==
[2025-02-05 19:38] LABS: Free T4 (Free Thyroxine) 1.15 ng/dl (0.78-2.19)
[2025-02-05 20:39] LABS: Thyroid Stimulating Hormone 0.57 uIU/mL (0.465-4.68)
--- OUTSIDE RECORDS SUMMARY | 2025-02-06 13:45 | XMS_ITS | Referral Summary ---
Author Organization [facility] Address [address] [place] [address] Care Team Providers Care Dry Ice Maker Name Role Phone James FOX, , Bird [...] on file Medical Devices Implanted Type Area Maintenance Mechanic Helper Device Identifier Shelf Expiration Date Model / Serial / Lot Implant,Total Hip Non-Cemented - [id number] Implanted:Qty: 1 on 06/20/2017 by Lasha Emery MD at [facility] Right: Hip [employer] Acetabular Shell Implanted:Qty: 1 on 06/20/2017 by Lasha Emery MD at [facility] Right: Hip [employer] 01/26/2027 2 / / [id number] Ceramic Femoral Head Implanted:Qty: 1 on 06/20/2017 by Lasha Emery MD at [facility] Right: Hip [employer] 10/27/2021 0 / / [id number] Acetabular Liner Implanted:Qty: 1 on 06/20/2017 by Lasha Emery MD at [facility] Right: Hip [employer] 04/28/2022 2 / / [id number] Corail Femoral Stem Implanted:Qty: 1 on 06/20/2017 by Lasha Emery MD at [facility] Right: Hip [employer] 11/26/2021 [id number] / / [id number] Screws,All - [id number] Implanted:Qty: 1 on 06/20/2017 by Lasha Emery MD at [facility] Right: Hip [employer] 0 / / Description:CANCELLOUS BONE SCREW (6.5 x 35mm) Insurance [facility] ALL OTHERS NOT MEDICARE Care Teams Dry Ice Maker Relationship Specialty Start Date End Date Bird Ramirez MD, MD [address] [place] [facility] [address] [place] [address] PCP - General 06/05/17
--- OUTSIDE RECORDS SUMMARY | 2025-02-06 13:45 | XMS_ITS | Clinical Summary ---
Author Organization [facility] Address [address] [place] [phone] Care Team Providers Care Corncob Pipe Manufacturing Supervisor Name Role Phone James FOX, , Bird [...] this topic Medical Devices Implanted Type Area Commercial Housekeeper Device Identifier Shelf Expiration Date Model / Serial / Lot Implant,Total Hip Non-Cemented - [id number] Implanted:Qty: 1 on 06/20/2017 by Lasha Emery MD at [facility] Right: Hip DEPUY [employer] Acetabular Shell Implanted:Qty: 1 on 06/20/2017 by Lasha Emery MD at [facility] Right: Hip [employer] 01/26/2027 2 / / [id number] Ceramic Femoral Head Implanted:Qty: 1 on 06/20/2017 by Lasha Emery MD at [facility] Right: Hip [employer] 10/27/2021 0 / / [id number] Acetabular Liner Implanted:Qty: 1 on 06/20/2017 by Lasha Emery MD at [facility] Right: Hip [employer] 04/28/2022 2 / / [id number] Corail Femoral Stem Implanted:Qty: 1 on 06/20/2017 by Lasha Emery MD at [facility] Right: Hip [employer] 11/26/2021 [id number] / / [id number] Screws,All - [id number] Implanted:Qty: 1 on 06/20/2017 by Lasha Emery MD at [facility] Right: Hip [employer] SAL[employer] 0 / / Description:CANCELLOUS BONE SCREW (6.5 x 35mm) Insurance [facility] ALL OTHERS NOT MEDICARE Advance Directives * Full Code (Latest Code Status on File) Date Activated Date Inactivated Comments 06/20/2017 12:11 PM 06/21/2017 3:02 PM * Full Code Date Activated Date Inactivated Comments 06/20/2017 7:26 AM 06/20/2017 12:11 PM Care Teams Corncob Pipe Manufacturing Supervisor Relationship Specialty Start Date End Date Bird Ramirez MD, [address] [place] [facility] [address] [place] [address] PCP - General 06/05/17
--- OUTSIDE RECORDS SUMMARY | 2025-02-06 13:45 | XMS_ITS | Encounter Summary ---
Author Organization [facility] Address [facility] [place] [address] Phone Care Team Providers Care Aerial Applicator Pilot Name Role Phone James FOX MD, Bird Pichardo Primary Care Provider + Encounter Details Date Type Department Care Team ([facility] st Contact Info) Description 06/26/2017 Discharge Call Center Patient Call Center [address] [place] [phone] Social History Tobacco Use Types Packs/Day Years [...] on filedocumented in this encounter Care Teams Aerial Applicator Pilot Relationship Specialty Start Date End Date Bird Ramirez MD, [address] [place] [address] [address] [address] PCP - General 06/05/17 documented as of this encounter
--- OUTSIDE RECORDS SUMMARY | 2025-02-06 13:45 | XMS_ITS | Clinical Summary ---
Author Organization [facility] Address [address] [place] [address] Phone Care Team Providers Care Dehydrogenation Converter Helper Name Role Phone Unavailable Primary Care Provider [...]
[2025-02-07 10:43] LABS: Triiodothyronine (T3) Free 2.3 pg/mL (2.0-4.4)
== END 2025-02-05 23:59 | disposition home or self-care (01) ==
LOC: LAB.DROPOF 02-06 13:43
PROVIDERS: PCP Nurse Practitioner; Visit Provider Nurse Practitioner
DX: R79.89 Other specified abnormal findings of blood chemistry (principal)
CPT/HCPCS: 84439; 84443; 84480; 84481

== ENCOUNTER 2025-02-12 10:35 | Outpatient (CLI) | payer OTHER, SELFPAY ==
--- OUTSIDE RECORDS SUMMARY | 2025-02-12 10:38 | XMS_ITS | Clinical Summary ---
Author Organization [facility] Address [address] [place] [address] Phone Care Team Providers Care Superintendent Circus Name Role Phone Unavailable Primary Care Provider [...]
--- OUTSIDE RECORDS SUMMARY | 2025-02-12 10:38 | XMS_ITS | Clinical Summary ---
Author Organization [facility] Address [address] [place] [phone] Care Team Providers Care Customs Examiner Name Role Phone James FOX, , Bird [...] this topic Medical Devices Implanted Type Area Side Seam Tender Device Identifier Shelf Expiration Date Model / Serial / Lot Implant,Total Hip Non-Cemented - [id number] Implanted:Qty: 1 on 06/20/2017 by Lasha Emery MD at [facility] Right: Hip DEPUY [employer] SALES Acetabular Shell Implanted:Qty: 1 on 06/20/2017 by Lasha Emery MD at [facility] Right: Hip [employer] 01/26/2027 2 / / [id number] Ceramic Femoral Head Implanted:Qty: 1 on 06/20/2017 by Lasha Emery MD at [facility] Right: Hip [employer] 10/27/2021 0 / / [id number] Acetabular Liner Implanted:Qty: 1 on 06/20/2017 by Lasha Emery MD at [facility] Right: Hip [employer] 04/28/2022 2 / / [id number] Corail Femoral Stem Implanted:Qty: 1 on 06/20/2017 by Lasha Emery MD at [facility] Right: Hip [employer] 11/26/2021 [id number] / / [id number] Screws,All - [id number] Implanted:Qty: 1 on 06/20/2017 by Lasha Emery MD at [facility] Right: Hip [employer] SAL[employer] 0 / / Description:CANCELLOUS BONE SCREW (6.5 x 35mm) Insurance [facility] ALL OTHERS NOT MEDICARE Advance Directives * Full Code (Latest Code Status on File) Date Activated Date Inactivated Comments 06/20/2017 12:11 PM 06/21/2017 3:02 PM * Full Code Date Activated Date Inactivated Comments 06/20/2017 7:26 AM 06/20/2017 12:11 PM Care Teams Customs Examiner Relationship Specialty Start Date End Date Bird Ramirez MD, [address] [place] [facility] [address] [place] [address] PCP - General 06/05/17
--- OUTSIDE RECORDS SUMMARY | 2025-02-12 10:39 | XMS_ITS | Referral Summary ---
Author Organization [facility] Address [address] [place] [address] Care Team Providers Care Hydrotel Operator Name Role Phone James FOX, , Bird [...] on file Medical Devices Implanted Type Area Political Reporter Device Identifier Shelf Expiration Date Model / Serial / Lot Implant,Total Hip Non-Cemented - [id number] Implanted:Qty: 1 on 06/20/2017 by Lasha Emery MD at [facility] Right: Hip [employer] SAL[employer] Acetabular Shell Implanted:Qty: 1 on 06/20/2017 by Lasha Emery MD at [facility] Right: Hip [employer] 01/26/2027 2 / / [id number] Ceramic Femoral Head Implanted:Qty: 1 on 06/20/2017 by Lasha Emery MD at [facility] Right: Hip [employer] 10/27/2021 0 / / [id number] Acetabular Liner Implanted:Qty: 1 on 06/20/2017 by Lasha Emery MD at [facility] Right: Hip [employer] 04/28/2022 2 / / [id number] Corail Femoral Stem Implanted:Qty: 1 on 06/20/2017 by Lasha Emery MD at [facility] Right: Hip [employer] 11/26/2021 [id number] / / [id number] Screws,All - [id number] Implanted:Qty: 1 on 06/20/2017 by Lasha Emery MD at [facility] Right: Hip DE[employer] SAL[employer] 0 / / Description:CANCELLOUS BONE SCREW (6.5 x 35mm) Insurance [facility] ALL OTHERS NOT MEDICARE Care Teams Hydrotel Operator Relationship Specialty Start Date End Date Bird Ramirez MD, MD [address] [place] [facility] [address] [place] [address] PCP - General 06/05/17
--- OUTSIDE RECORDS SUMMARY | 2025-02-12 10:39 | XMS_ITS | Encounter Summary ---
Author Organization [facility] [facility] Address [facility] [place] [address] Phone Care Team Providers Care Radiotelegraph Operator Servicer Name Role Phone James FOX MD, Bird Pichardo Primary Care Provider + Encounter Details Date Type Department Care Team ([facility] st Contact Info) Description 06/26/2017 Discharge Call Center Patient Call Center [address] [place] [address] Social History Tobacco Use Types Packs/Day Years [...] on filedocumented in this encounter Care Teams Radiotelegraph Operator Servicer Relationship Specialty Start Date End Date Bird Ramirez MD, [address] [place] [address] [address] [address] PCP - General 06/05/17 documented as of this encounter
--- NOTE | 2025-02-12 11:00 | MM_ITS ---
PROCEDURE INFORMATION: Exam: MG Bilateral Screening 3D Mammography Exam date and time: 02/12/2025 10:40 AM Age: 44 years old Clinical indication: Screening examination TECHNIQUE: Imaging protocol: Bilateral Screening tomosynthesis and 2D mammography including computer-aided detection (CAD) when performed. COMPARISON: 1. MG SCBI MM Dig screening mamm BI w/CAD 03/26/2018 8:38 AM 2. MG DMBAV DIG MAMM- ATIYA ADD VIEWS 02/12/2015 1:22 PM FINDINGS: MAMMOGRAPHY: Breast composition: There are scattered areas of fibroglandular density. Mass: None. Architectural distortion: None. Calcifications: No suspicious calcifications. Asymmetric density: None. Skin thickening: None. Axillary adenopathy: None. IMPRESSION: No mammographic evidence of malignancy. Annual screening is recommended unless otherwise clinically indicated. ASSESSMENT: BI-RADS Category 1: Negative.
== END 2025-02-12 23:59 | disposition home or self-care (01) ==
LOC: RAD 10:36
PROVIDERS: PCP Nurse Practitioner; Visit Provider Nurse Practitioner
DX: Z12.31 Encounter for screening mammogram for malignant neoplasm of breast (principal); R92.323 Mammographic fibroglandular density, bilateral breasts
CPT/HCPCS: 77063; 77067

== ENCOUNTER 2025-04-08 09:57 | Outpatient (CLI) | payer OTHER, SELFPAY ==
--- OUTSIDE RECORDS SUMMARY | 2025-04-10 10:02 | XMS_ITS | Clinical Summary ---
Author Organization [facility] Address [address] [place] [address] Phone Care Team Providers Care Estimator Printing Plate Making Name Role Phone Unavailable Primary Care Provider [...] HPV/Pap Cotest 12/24/2009 Breast Cancer Screening 2019 Cologuard 12/24/2024 Colon Cancer Screening 12/24/2024 Colonoscopy 12/24/2024 FIT 12/24/2024 Sigmoidoscopy 12/24/2024 Virtual Colonography 12/24/2024 COVID-19 Vaccine ( - 2023-2 5 season) 2025 Influenza Vaccine (#1) 2025 Meningococcal B Vaccine Aged Out No l onger eligible based on patient's age to complete this topic Insurance
--- OUTSIDE RECORDS SUMMARY | 2025-04-10 10:02 | XMS_ITS | Referral Summary ---
Author Organization [facility] Address [address] [place] [address] Care Team Providers Care In Home Nanny Name Role Phone James FOX, , Bird [...] on file Medical Devices Implanted Type Area Movie Editor Device Identifier Shelf Expiration Date Model / Serial / Lot Implant,Total Hip Non-Cemented - [id number] Implanted:Qty: 1 on 06/20/2017 by Lasha Emery MD at [facility] Right: Hip DE[employer] Acetabular Shell Implanted:Qty: 1 on 06/20/2017 by Lasha Emery MD at [facility] Right: Hip [employer] 01/26/2027 2 / / [id number] Ceramic Femoral Head Implanted:Qty: 1 on 06/20/2017 by Lasha Emery MD at [facility] Right: Hip [employer] 10/27/2021 0 / / [id number] Acetabular Liner Implanted:Qty: 1 on 06/20/2017 by Lasha Emery MD at [facility] Right: Hip [employer] 04/28/2022 2 / / [id number] Corail Femoral Stem Implanted:Qty: 1 on 06/20/2017 by Lasha Emery MD at [facility] Right: Hip [employer] 11/26/2021 [id number] / / [id number] Screws,All - [id number] Implanted:Qty: 1 on 06/20/2017 by Lasha Emery MD at [facility] Right: Hip [employer] 0 / / Description:CANCELLOUS BONE SCREW (6.5 x 35mm) Insurance [facility] ALL OTHERS NOT MEDICARE Care Teams In Home Nanny Relationship Specialty Start Date End Date Bird Ramirez MD, MD [address] [place] [facility] [address] [place] [address] PCP - General 06/05/17
--- OUTSIDE RECORDS SUMMARY | 2025-04-10 10:02 | XMS_ITS | Clinical Summary ---
Author Organization [facility] Address [address] [place] [phone] Care Team Providers Care Life Sciences Instructor Name Role Phone James FOX, , Bird [...] (1 - Tdap) 12/24/1990 Pap Screening 12/24/2000 HPV (1 - 3-dose SCDM series) 12/24/2006 Mammogram Screening 2019 Colonoscopy 12/24/2024 Influenza Vaccine (#1) 2025 RSV Vaccine (60+ or ) (1 - 1-dose 75+ series) 12/24/2054 Meningococcal conjugate annia nt 4 (MCV4) Aged Out No longer eligible b ased on patient's age to complete this topic Pneumococcal 0-49 Aged Out No longer eligible based on patient's age to complete this topic RSV Immunization (<20 months) Aged Out No longer eligible based on patient's age to complete this topic Medical Devices Implanted Type Area Belt Lacer Device Identifier Shelf Expiration Date Model / Serial / Lot Implant,Total Hip Non-Cemented - [id number] Implanted:Qty: 1 on 06/20/2017 by Lasha Emery MD at [facility] Right: Hip DEPUY [employer] Acetabular Shell Implanted:Qty: 1 on 06/20/2017 by Lasha Emery MD at [facility] Right: Hip [employer] 01/26/2027 2 / / [id number] Ceramic Femoral Head Implanted:Qty: 1 on 06/20/2017 by Lasha Emery MD at [facility] Right: Hip [employer] 10/27/2021 0 / / [id number] Acetabular Liner Implanted:Qty: 1 on 06/20/2017 by Lasha Emery MD at [facility] Right: Hip [employer] 04/28/2022 2 / / [id number] Corail Femoral Stem Implanted:Qty: 1 on 06/20/2017 by Lasha Emery MD at [facility] Right: Hip [employer] 11/26/2021 [id number] / / [id number] Screws,All - [id number] Implanted:Qty: 1 on 06/20/2017 by Lasha Emery MD at [facility] Right: Hip [employer] 0 / / Description:CANCELLOUS BONE SCREW (6.5 x 35mm) Insurance [facility] ALL OTHERS NOT MEDICARE Advance Directives * Full Code (Latest Code Status on File) Date Activated Date Inactivated Comments 06/20/2017 12:11 PM 06/21/2017 3:02 PM * Full Code Date Activated Date Inactivated Comments 06/20/2017 7:26 AM 06/20/2017 12:11 PM Care Teams Life Sciences Instructor Relationship Specialty Start Date End Date Bird Ramirez MD, MD [address] [place] [address] PCP - General 06/05/17
--- OUTSIDE RECORDS SUMMARY | 2025-04-10 10:02 | XMS_ITS | Encounter Summary ---
Author Organization [employer] [facility] Address [facility] [place] [address] Phone Care Team Providers Care Change Management Expert Name Role Phone James FOX MD, Bird Pichardo Primary Care Provider + Encounter Details Date Type Department Care Team ([facility] st Contact Info) Description 06/26/2017 Discharge Call Center Patient Call Center [address] [place] [address] Social History Tobacco Use Types Packs/Day Years [...] on filedocumented in this encounter Care Teams Change Management Expert Relationship Specialty Start Date End Date Bird Ramirez MD, [address] [place] [address] [address] [address] PCP - General 06/05/17 documented as of this encounter
== END 2025-04-08 23:59 ==
LOC: LAB.DROPOF 04-10 09:58
PROVIDERS: PCP Family Medicine; Visit Provider Obstetrics & Gynecology
DX: R82.90 Unspecified abnormal findings in urine (principal)
CPT/HCPCS: 87086; 87088; 87186

== ENCOUNTER 2025-04-16 08:25 | Day surgery (SDC) | payer OTHER, SELFPAY ==
[2025-04-14 08:27] VITALS: BMI 27.6
--- NOTE | 2025-04-14 13:54 | P.HP_ITS ---
History of Present Illness *Admission Date: 04/16/25 *History of present illness: Mrs. Perea is a 44-year-old female who is here for initial screening colonoscopy. The examination is deemed medically necessary for screening colonoscopy. The patient has been seen, interviewed and examined prior to the procedure by both myself and the anesthesia provider. [facility] Disclaimer: The information contained in this section may have been updated after the patient was seen, as this information can be updated by other users. Medical History Low TSH level Positive CLAUDETTE (antinuclear antibody) Hyperlipidemia Vitamin D deficiency Osteoarthritis of left hip Nasal congestion Cough Surgical History History of hip replacement Social History (Updated 04/16/25 @ 08:47 by Viv Delgado RN) Smoking Status: Current every day smoker tobacco type: cigarettes packs per day: 1 alcohol intake: current alcohol intake frequency: holidays/special occasions only substance use type: denies use current occupational status: other Travel in the last 8 weeks?: None household members: significant other and children housing: house current occupation: [employer] current occupational exposures/hazards: No caffeine: Yes Have you lived/traveled outside [place] in past 30 days?: No Contact w/someone who lives/traveled outside [place] past 30 days?: No Exposure to someone with infectious disease in past 14 days?: No Do you have a fever (greater than 100.4 F or 38 C)?: No Have you tested positive for COVID-19?: No Exposed to someone with COVID-19 in past 14 days?: No Do you have a sore throat?: No Do you have a cough?: No Do you have any weakness?: No Are you experiencing any nausea/vomitting?: No Do you have any diarrhea?: No Are you experiencing any unusual bleeding?: No Do you have any muscle aches/pain?: No Do you have any abdominal pain?: No Are you experiencing loss of taste or smell?: No Other Medical History Have you received the Flu Vaccine for this season: No Have you received the Pneumonia Vaccine: No Review of Systems Review of Systems Review of systems (narrative): Negative *Cardiovascular Comments: Negative *Gastrointestinal Comments: Negative *Genitourinary Comments: Negative *Musculoskeletal Comments: Negative *Neurologic Comments: Negative Meds Home Medications and Allergies Home Medications ?Medication ?Instructions ?Recorded ?Confirmed ?Type cholecalciferol (vitamin D3) 125 125 mcg PO DAILY #90 tabs 02/05/25 04/14/25 Rx mcg (5,000 unit) tablet buspirone 10 mg tablet 10 mg PO BID PRN anxiety #60 tabs 03/24/25 04/14/25 Rx sodium,potassium,mag sulfates 17.5 See Rx Instructions PO .COMPLEX 04/02/25 04/08/25 Rx gram-3.13 gram-1.6 gram oral soln #354 mL (Suprep Bowel Prep Kit) New Prescriptions to Start Prescriptions: Allergies Allergy/AdvReac Type Severity Reaction Status Date / Time No Known Allergies Allergy Verified 04/16/25 08:52 Exam Data for Last 24 hours I & O for Last 24 hours: Intake & Output 04/11/25 04/12/25 04/13/25 04/14/25 23:59 23:59 23:59 23:59 Weight 215 lb *Routine HEENT Exam Head: Present normocephalic Eye: Present EOMI and PERRL ENT: Present mucous membranes moist *Routine Neck Exam Neck: Present supple *Routine Respiratory Exam Respiratory: Present CTA bilaterally *Routine Cardiovascular Exam Cardiovascular: Present RRR *Routine Abdominal Exam Abdominal: Present soft and normoactive bowel sounds; Absent tenderness *Routine Rectal Exam Rectal:: deferred *Routine Genitalia Exam Genitalia:: deferred *Routine Extremities Exam Extremities: Absent cyanosis, clubbing or edema *Routine Skin Exam Skin: Present warm; Absent rash *Routine Neurological Exam Neurological: Present alert and oriented X3 Assessment and Plan *Assessment and plan (1) Screening for colon cancer: Status: Acute Category: Medical Code(s): Z12.11 - Encounter for screening for malignant neoplasm of colon Plan A/P: 1. Screening for colon cancer is the preprocedural diagnosis. The patient will be anesthetized/sedated using MAC sedation. The patient has been seen and examined. Cardiac and lung assessment prior to the examination is stable. Proceed with planned screening colonoscopy.
[2025-04-16 08:46] VITALS: BP 133/75; PULSE 69; RESP 16; TEMP 36.6; O2SAT 98; BMI 27.6
[2025-04-16 08:49] LABS: Urine Pregnancy, HCG Qual. Negative (Negative)
[2025-04-16] MEDS: LACTATED RINGERS 1000ML 1,000 ML 50 ML IV (08:53)
--- NOTE | 2025-04-16 09:02 | P.PNANES_ITS ---
[facility] Disclaimer: The information contained in this section may have been updated after the patient was seen, as this information can be updated by other users. Medical History Low TSH level Positive CLAUDETTE (antinuclear antibody) Hyperlipidemia Vitamin D deficiency Osteoarthritis of left hip Nasal congestion Cough Surgical History History of hip replacement Social History (Updated 04/16/25 @ 08:47 by Viv Delgado RN) Smoking Status: Current every day smoker tobacco type: cigarettes packs per day: 1 alcohol intake: current alcohol intake frequency: holidays/special occasions only substance use type: denies use current occupational status: other Travel in the last 8 weeks?: None household members: significant other and children housing: house current occupation: [employer] current occupational exposures/hazards: No caffeine: Yes Have you lived/traveled outside [place] in past 30 days?: No Contact w/someone who lives/traveled outside [place] past 30 days?: No Exposure to someone with infectious disease in past 14 days?: No Do you have a fever (greater than 100.4 F or 38 C)?: No Have you tested positive for COVID-19?: No Exposed to someone with COVID-19 in past 14 days?: No Do you have a sore throat?: No Do you have a cough?: No Do you have any weakness?: No Are you experiencing any nausea/vomitting?: No Do you have any diarrhea?: No Are you experiencing any unusual bleeding?: No Do you have any muscle aches/pain?: No Do you have any abdominal pain?: No Are you experiencing loss of taste or smell?: No [facility] Anesthesia Checklist Patient Identification Patient Identification: Arm Band and Verbal (Name & ) Structural Data Admitted From: Home Planned Operative Procedure/s: colonoscopy Verified Documents: Surgical Consent NPO Status Verified Time NPO: 00:00 Additional verifications Anesthesia Reactions: No Hx Blood Transfusions: No Airway Assessment Mallampati Score:: Class II C-Spine Mobility Assessed: Yes TMJ Mobility Assessed: Yes Dentition: Good Dentition Neurological Assessment Level of Consciousness: Awake, Alert and Appropriate Hx Seizures: No Numbness or tingling in extremities: No Anesthesia Plan Anesthesia Risk discussed: Yes Anesthesia Plan: Verified ASA Class: II Anesthesia Type: MAC
--- NOTE | 2025-04-16 09:14 | HMH.PROCNOTE ---
[facility] Procedure Note Date: 04/16/25 Time: 09:29 Procedure Note:: Colonoscopy Procedure Report: Colonoscopy Endoscopist: Jared Alba II, MD Referring physician: GABO Steele Date of Procedure: April 16, 2025 Equipment: Olympus [id number] adult colonoscope Sedation: MAC sedation Indication: Mrs. Perea is a 44-year-old female who is here for initial screening colonoscopy. She reports no abdominal pain, weight loss, change in her bowel habits or rectal bleeding. She reports no family history of colon cancer. Procedure: Prior to the procedure, a history and physical exam was performed, and patient's medications and allergies were reviewed. The risks, benefits and alternatives of the sedation and procedure were discussed with the patient. All questions were answered and informed consent was obtained. The patient was brought to the procedure room. Patient identification and proposed procedure were verified by the physician and the nurse. The patient was placed in a left lateral decubitus position and the scope was passed under direct vision. Throughout the procedure, the patient's blood pressure, pulse, and oxygen saturations were monitored continuously. The colonoscopy was accomplished without difficulty. The patient tolerated the procedure well. Findings: On digital rectal examination there was normal rectal tone. There were no external hemorrhoids. The colonoscope was introduced through the anal canal to the rectum and advanced to the cecum. The ileocecal valve and appendiceal orifice were identified. The scope was advanced a short distance into the ileum which appeared grossly normal. The scope was then withdrawn into the colon. The cecum, ascending and transverse colon and mucosa were grossly normal. There were scattered diverticuli throughout the descending and sigmoid colon (LEFT colon). The rectum itself was normal. Upon retroflexion within the rectum there were grade 1-2 internal hemorrhoids. The preparation was excellent throughout with [place] Preparation Score of 9. The cecal time was 12 minutes. Impression: 1. Left-sided diverticulosis 2. Grade 1-2 internal hemorrhoids Plan: The patient will not require screening/surveillance colonoscopy again for 10 years by ACS guidelines. I would encourage psyllium bulking fiber supplementation on a maintenance basis.
[2025-04-16 09:31] VITALS: BP 111/65; PULSE 66; RESP 18; O2SAT 96
[2025-04-16 09:41] VITALS: BP 114/78; PULSE 77; RESP 16; O2SAT 99
[2025-04-16 09:51] VITALS: BP 111/79; PULSE 71; RESP 98; O2SAT 99
[2025-04-16 10:01] VITALS: BP 127/87; PULSE 72; RESP 18; O2SAT 99
== END 2025-04-16 10:01 | disposition home or self-care (01) ==
PROVIDERS: PCP Nurse Practitioner; Visit Provider Internal Medicine Gastroenterology
PROC: 0DJD8ZZ Inspection of Lower Intestinal Tract, Via Natural or Artificial Opening Endoscopic (ICD-10-PCS; CPT 45378; principal; 2025-04-16 10:00)
DX: Z12.11 Encounter for screening for malignant neoplasm of colon (principal); K57.30 Diverticulosis of large intestine without perforation or abscess without bleeding; K64.0 First degree hemorrhoids; K64.1 Second degree hemorrhoids; F17.210 Nicotine dependence, cigarettes, uncomplicated
CPT/HCPCS: 45378; 81025; J2003; J2704; J7120